=== PATIENT | female | born 1935 | race Caucasian/White ===

== ENCOUNTER → 2023-11-24 10:04 | Outpatient (REF) | payer MEDICARE, BC, SELFPAY ==
[2023-11-24 11:44] LABS: Urine Albumin Negative (Neg - Trace); Urine Bilirubin Negative (Negative); Urine Character Clear (Clear); Urine Color Yellow; Urine Glucose Negative (Negative); Urine Ketone Negative (Negative); Urine Leukocyte 2+ (Negative); Urine Nitrite Negative (Negative); Urine Occult Blood Negative (Negative); Urine Urobilinogen Negative (Neg - 1+)
[2023-11-24 14:03] LABS: Urine Mucus Few; Urine Squamous Cell >30 /LPF (Few)
[2023-11-24 14:04] LABS: Urine Urothelial Cell 0-2 /LPF (FEW)
[2023-11-24 14:05] LABS: Urine Red Blood Cell 0-2 /HPF (0-2)
[2023-11-24 14:06] LABS: Urine Bacteria Moderate (Negative)
== END ==
LOC: HWLAB 10:04
PROVIDERS: ATTENDING PHYSICIAN Obstetrics & Gynecology
DX: N39.0 Urinary tract infection, site not specified (principal)
CPT/HCPCS: 81003; 81015; 87086; 87088; 87186

== ENCOUNTER → 2023-11-27 11:58 | Emergency (ER) | payer MEDICARE, BC, SELFPAY ==
[2023-11-27 12:08] VITALS: BP 154/96; BMI 32.8
[2023-11-27 12:35] LABS: Urine Albumin 1+ (Neg - Trace); Urine Bilirubin 1+ (Negative); Urine Character Clear (Clear); Urine Color Yellow; Urine Glucose Negative (Negative); Urine Ketone 3+ (Negative); Urine Leukocyte 2+ (Negative); Urine Nitrite Negative (Negative); Urine Occult Blood 1+ (Negative); Urine Urobilinogen Negative (Neg - 1+); Urine pH 6.5 (5.0-9.0)
[2023-11-27 12:37] LABS: % Basophils 0.3 % (0-2); % Immature Granulocytes 0.3 % (0-0.5); % Lymphocytes 4.8 % (20.5-51.1); % Monocytes 7.1 % (1.7-9.3); % Neutrophils 85.5 % (42.2-75.2); Absolute Eosinophils 0.2 10^3/uL (0-0.7); Absolute Lymphocytes 0.5 10^3/uL (1.2-3.4); Absolute Monocytes 0.7 10^3/uL (0.1-0.6); Absolute Neutrophils 8.1 10^3/uL (1.4-6.5); Hematocrit 42.8 % (37.0-47.0); Hemoglobin 14.8 g/dL (12.0-16.0); Mean Corp Hgb Conc. 34.6 g/dL (33.0-37.0); Mean Corpuscular Hgb 32.2 pg (27.0-31.0); Mean Platelet Volume 9.2 fL (7.4-10.4); Nucleated Red Blood Cells % 0 %; Platelet Count 461 10^3/uL (130-400); Red Cell Dist. Width 13.1 % (11.5-14.5); White Blood Cell Count 9.5 10^3/uL (4.8-10.8)
[2023-11-27 12:42] LABS: Urine Squamous Cell >30 /LPF (Few)
[2023-11-27 12:43] LABS: Urine Bacteria Few (Negative)
[2023-11-27 12:46] LABS: Lactic Acid 1.2 mmol/L (0.7-2.0)
[2023-11-27 12:48] LABS: ALT (SGPT) 17 U/L (0-35); AST (SGOT) 29 U/L (14-36); Albumin 4.1 g/dl (3.5-5.0); Alkaline Phosphatase 87 U/L (38-126); Blood Urea Nitrogen 14 mg/dl (7-17); Calcium 9.5 mg/dl (8.4-10.2); Carbon Dioxide 28 mmol/L (22-30); Chloride 103 mmol/L (98-107); Estimated Creatinine Clearance 59 ml/min; Glucose 128 mg/dl (70-99); Potassium 4.2 mmol/L (3.5-5.1); Sodium 136 mmol/L (135-145); Total Bilirubin 0.8 mg/dl (0.2-1.3); Total Protein 6.7 g/dl (6.3-8.2); eGFR > 60.00
[2023-11-27 14:03] VITALS: BP 124/79
--- NOTE | 2023-11-27 15:21 | ED.GENMED ---
History of Present Illness
<Lynette Barroso PA-C - Last Filed: 11/27/23 20:36>
General
Chief Complaint: Urinary Symptoms
Source: patient and family
Exam Limitations: none
Time Seen by Provider: 11/27/23 14:11
Nursing documentation reviewed up to this point in time: agreed with
Travel History
Have you had any contact with someone who has COVID-19?: No
Do you have any symptoms of coronavirus? Fever > 100 degrees, chills, cough, shortness of breath, sore throat, loss of taste or smell, muscle aches, or headache?: No
History of Present Illness
History of Present Illness:
88-year-old female with a PMH of HTN, afib, presenting to the emergency department today with flank pain, abdominal pain, and nausea for the past 24 hours. Patient states that she was seen by her PCP 2 days ago for UTI symptoms and was called
yesterday with positive result and was started on Macrobid. Patient states that she was recently started to have abdominal pain and flank pain. Patient has no history of kidney stones. Patient denies fevers or chills, upper back pain, chest pain,
shortness of breath, lightheadedness, dizziness. Patient denies diarrhea. Patient denies recent hospitalizations.
Past History
<Lynette Barroso PA-C - Last Filed: 11/27/23 20:36>
Past History
ED Past Medical History: Arrthythmia (Atrial fibrillation-only on aspirin), GERD, HTN, Hypothyroidism and Other (Hypertension, A. fib on anticoagulation, cholecystectomy, umbilical hernia repair, GERD)
ED Past Surgical History: Cholecystectomy, Orthopedic (Lateral shoulder, right knee) and Other (Hernia repair)
Patient has exhibited threatening behavior?: No
PSI?: No
Social History
Tobacco: Non-smoker
Alcohol: None
Drug: None
Personal:
Living: with family
Employment: Retired
Family History
Family History: Other (Noncontributory)
Review of Systems
<Lynette Barroso PA-C - Last Filed: 11/27/23 20:36>
Review of Systems
All Other Systems: ROS reviewed and negative except as documented in HPI and ROS
Phy Exam
<Lynette Barroso PA-C - Last Filed: 11/27/23 20:36>
Physical Exam
Physical Exam:
Vitals: Patient is afebrile
General: Patient is well-appearing in no acute distress
Skin: Skin is warm and dry, no rashes or lesions, no areas of ecchymosis
Cardiac: Regular rate and rhythm, no murmur
Pulm: Normal respiratory effort
Abdomen: Abdomen is non-distended, no palpable masses. Tenderness to palpation in the right lower and left lower quadrants. Right sided costovertebral tenderness.
Course
<Lynette Barroso PA-C - Last Filed: 11/27/23 20:36>
Orders/Labs/Results
Orders:
Orders
11/27/23 12:20
Urinalysis Reflex To Culture Urgent
Date Specimen was Collected: 11/27/23
Time Specimen was Collected: 12:12
Urine Microscopic Reflex Cult Urgent
Urine Culture Urgent
SHAMA Source: U
Specimen Description:
Date Specimen was Collected: 11/27/23
Time Specimen was Collected: 12:12
11/27/23 12:25
Complete Blood Count/With Diff Urgent
Comprehensive Metabolic Panel Urgent
Lactic Acid Q4H
Comment: ON ICE, CANCEL 2ND ORDER IF FIRST LACTIC ACID LEVEL <2
11/27/23 15:30
0.9% Sodium Chloride 500 ml [Nss] 500 ml IV BOLUS
Acetaminophen [Tylenol] 650 mg PO NOW STA
Ondansetron Injectable [Zofran] 4 mg IV NOW STA
11/27/23 15:49
CT Abd/pel Without Iv Or Oral Urgent
Comment:
Reason For Exam: Right sided flank pain, abdominal pain
11/27/23 16:15
Lactic Acid Q4H
Comment: ON ICE, CANCEL 2ND ORDER IF FIRST LACTIC ACID LEVEL <2
Abnormal Lab Results
11/27/23 11/27/23
12:20 12:25
MCH 32.2 H pg
(27.0-31.0)
Plt Count 461 H 10^3/uL
(130-400)
Absolute Neuts (auto) 8.1 H 10^3/uL
(1.4-6.5)
Absolute Lymphs (auto) 0.5 L 10^3/uL
(1.2-3.4)
Absolute Monos (auto) 0.7 H 10^3/uL
(0.1-0.6)
Neutrophils % 85.5 H %
(42.2-75.2)
Lymphocytes % 4.8 L %
(20.5-51.1)
Glucose 128 H mg/dl
(70-99)
Urine Ketones 3+ A
(Negative)
Ur Occult Blood Reflex 1+ A
(Negative)
Urine Bilirubin 1+ A
(Negative)
Leukocyte Esterase Rfl 2+ A
(Negative)
Urine RBC 3-6 A /HPF
(0-2)
Urine Bacteria (Reflex) Few A
(Negative)
Urine Albumin (Reflex) 1+ A
(Neg - Trace)
11/27/23 12:25
11/27/23 12:25
Vital Signs
Initial and Last Documented VS:
Initial Vital Signs
Temp Pulse Resp BP Pulse Ox
99.4 F 90 16 154/96 99
11/27/23 12:08 11/27/23 12:08 11/27/23 12:08 11/27/23 12:08 11/27/23 12:08
Last Documented Vital Signs
Temp Pulse Resp BP Pulse Ox
98.4 F 81 17 124/79 96
11/27/23 14:03 11/27/23 14:03 11/27/23 14:03 11/27/23 14:03 11/27/23 14:03
<Herbert Lane MD - Last Filed: 11/27/23 19:18>
Orders/Labs/Results
Orders:
Orders
11/27/23 12:20
Urinalysis Reflex To Culture Urgent
Date Specimen was Collected: 11/27/23
Time Specimen was Collected: 12:12
Urine Microscopic Reflex Cult Urgent
Urine Culture Urgent
SHAMA Source: U
Specimen Description:
Date Specimen was Collected: 11/27/23
Time Specimen was Collected: 12:12
11/27/23 12:25
Complete Blood Count/With Diff Urgent
Comprehensive Metabolic Panel Urgent
Lactic Acid Q4H
Comment: ON ICE, CANCEL 2ND ORDER IF FIRST LACTIC ACID LEVEL <2
11/27/23 15:30
0.9% Sodium Chloride 500 ml [Nss] 500 ml IV BOLUS
Acetaminophen [Tylenol] 650 mg PO NOW STA
Ondansetron Injectable [Zofran] 4 mg IV NOW STA
11/27/23 15:49
CT Abd/pel Without Iv Or Oral Urgent
Comment:
Reason For Exam: Right sided flank pain, abdominal pain
11/27/23 16:15
Lactic Acid Q4H
Comment: ON ICE, CANCEL 2ND ORDER IF FIRST LACTIC ACID LEVEL <2
Abnormal Lab Results
11/27/23 11/27/23
12:20 12:25
MCH 32.2 H pg
(27.0-31.0)
Plt Count 461 H 10^3/uL
(130-400)
Absolute Neuts (auto) 8.1 H 10^3/uL
(1.4-6.5)
Absolute Lymphs (auto) 0.5 L 10^3/uL
(1.2-3.4)
Absolute Monos (auto) 0.7 H 10^3/uL
(0.1-0.6)
Neutrophils % 85.5 H %
(42.2-75.2)
Lymphocytes % 4.8 L %
(20.5-51.1)
Glucose 128 H mg/dl
(70-99)
Urine Ketones 3+ A
(Negative)
Ur Occult Blood Reflex 1+ A
(Negative)
Urine Bilirubin 1+ A
(Negative)
Leukocyte Esterase Rfl 2+ A
(Negative)
Urine RBC 3-6 A /HPF
(0-2)
Urine Bacteria (Reflex) Few A
(Negative)
Urine Albumin (Reflex) 1+ A
(Neg - Trace)
11/27/23 12:25
11/27/23 12:25
Vital Signs
Initial and Last Documented VS:
Initial Vital Signs
Temp Pulse Resp BP Pulse Ox
99.4 F 90 16 154/96 99
11/27/23 12:08 11/27/23 12:08 11/27/23 12:08 11/27/23 12:08 11/27/23 12:08
Last Documented Vital Signs
Temp Pulse Resp BP Pulse Ox
98.4 F 81 17 124/79 96
11/27/23 14:03 11/27/23 14:03 11/27/23 14:03 11/27/23 14:03 11/27/23 14:03
Leolt;Lynette Barroso PA-C - Last Filed: 11/27/23 20:36>
MDM/Problems Addressed
Differential Diagnosis Includes:
Differentials include acute cystitis, pyelonephritis, infected nephrolithiasis
MDM/Problems Addressed:
Abdominal pain
Nausea
UTI
Chronic conditions affecting care: HTN and Arrhythmia
Acute Exacerbation and/or Progression of Chronic Illness: HTN
<MARISABEL Robledo Last Filed: 11/27/23 20:36>
*Pulse Oximetry
Patient hypoxic: no
*Critical Care Note
Total Time (30-74mins, 75-104mins- exclusive of procedures): Not Applicable
Data Reviewed
Review of Other/Old Records Reveals: Discharge Summary (Reviewed discharge summary from 08/31/2022)
Prescriptions/Medications Considered But Not Given:
Considered admission for IV antibiotics therapy, however patient is very well-appearing, is afebrile, and wishes to go home; her daughter lives close by and is able to help with care
Further Testing Considered But Not Given:
n/a
<MARISABEL Robledo Last Filed: 11/27/23 20:36>
Patient Management
Escalation/DeEscalation of care consider admission/obs:
88-year-old female medical history of hypothyroidism, UTI sepsis, A-fib presenting to emergency department today with lower abdominal pain, flank pain, nausea in the setting of UTI. Patient being treated as an outpatient currently with Macrobid.
Family doctor was concerned about her history of UTI sepsis and advised being evaluated here at the emergency department. Her CBC is unremarkable, and her CMP is unremarkable. Her urinalysis here does show evidence of UTI however there is many
squamous cells. Considering patient had microscopic hematuria, new flank pain abdominal pain, CT was obtained which shows no evidence of kidney stone or other renal abnormalities. Patient was advised on return precautions and we recommended she
stop her Macrobid and start cefdinir. Patient stable for discharge.
ED Attending Note
<MARISABEL Robledo Last Filed: 11/27/23 20:36>
-
Portions of this chart may have been created with voice recognition software.� Occasional wrong word or��sound alike� substitutions may have occurred due to the inherent limitations of voice recognition software.
<Herbert Lane MD - Last Filed: 11/27/23 19:18>
ED Attending Note
Patient seen and examined by attending physician: Yes
ED Attending Note:
Patient presents to ED secondary to nausea sensation without vomiting, after starting Macrobid yesterday for possible urinary tract infection. Patient states that she started to experience lower abdominal cramping feeling 3 days ago, which she has
had in the past secondary to UTI. As such, patient spoke with her primary care physician who advised that she has her urine test as an outpatient, which was completed at [facility]. Patient received phone call at home from her primary care
physician and was started on Macrobid. Denies fever or chills. Denies abdominal pain. Denies back pain. Denies diarrhea.
Physical Exam
General: no apparent distress, not acutely ill. afebrile
Head: nc/at. eomi
Neck: supple. no meningeal signs.
Heart: s1/s2 regular rate and rhythm, no murmur. equal radial pulses.
Lungs: no acute respiratory distress. clear bilaterally
Abdomen: normal bowel sounds. not tender.
Neuro: alert and oriented. no focal neurological deficits
Skin: no rash
Psychiatric: well kept. interactive and cooperative
Extremities: no edema. no calf tenderness.
Blood work and urinalysis reviewed. In light of patient's lower abdominal/flank discomfort along with hematuria noted on UA, CT abdomen pelvis ordered to evaluate for potential kidney stone.
CT abdomen pelvis: No acute findings.
Discussed treatment options with patient and family. Family opted to be discharged home at this time with different antibiotics. Will follow-up with PCP as an outpatient, or return to ED with worsening symptoms. Otherwise, patient is afebrile,
hemodynamically stable, and nontoxic-appearing, at time of discharge.
Discharge Plan
Departure
Patient Disposition: Home (Routine Discharge)
Date of Disposition: 11/27/23
Time of Disposition: 17:49
Patient with high blood pressure during this ER visit?: Yes
Condition: Good
Discharge Problem:
Urinary tract infection
Instructions: Urinary Tract Infection, Adult (DC), BLOOD PRESSURE
Prescriptions:
New
cefdinir 300 mg capsule
300 mg PO BID 7 Days Qty: 14 0RF
No Action
levothyroxine 75 MCG tablet
75 mcg PO DAILY
esomeprazole magnesium [Nexium] 40 MG capsule,delayed release(DR/EC)
40 mg PO HS
aspirin 81 MG tablet,delayed release (DR/EC)
81 mg PO HS
lisinopril 10 MG tablet
10 mg PO QPM
sertraline 25 MG tablet
25 mg PO QPM
cholecalciferol (vitamin D3) 1,000 UNITS tablet
1,000 units PO QPM
metoprolol succinate 25 MG tablet extended release 24 hr
25 mg PO DAILY
acetaminophen 650 mg Tablet Extended Release
650 mg PO Q12H PRN (Reason: mild pain)
prednisone 10 mg tablet
10 mg PO DAILY Qty: 16 0RF
Rx Instructions:
40mg * 1 day
30mg * 2 days
20mg* 2 days
10MG*2 days and stop
azithromycin [Zithromax] 500 mg tablet
500 mg PO DAILY 2 Days Qty: 2 0RF
Chld Robitussin Cough-Chest DM 5-100 mg/5 mL liquid
10 ml PO Q6H PRN (Reason: cough) Qty: 118 0RF
albuterol sulfate 90 mcg/actuation HFA aerosol inhaler
2 puff inhalation Q6H PRN (Reason: shortness of breath or wheezing) Qty: 6.7 0RF
guaifenesin [Mucinex] 600 mg Tablet Extended Release 12hr
600 mg PO Q12 Qty: 14 0RF
Referrals:
D'Daniel,Conchita, TRANSPORTATION COORDINATOR [Family Provider] -
Activity Restrictions/Additional Instructions:
Your CT scan did not show any evidence of an infected stone.
Please stop taking the nitrofurantoin. Please start taking cefdinir one tablet twice daily for 7 days.
Please return to the emergency department should you develop fevers or chills, worsening pain, intractable vomiting, decreased ability to tolerate oral intake, or other concerning signs or symptoms.
Please follow-up with your primary care provider.
Interventions
Interventions:
*ED COVID-19 Vaccine History Last Done: 11/27/23 12:08
[2023-11-27] MEDS: TYLENOL 650 MG PO (15:53)
[2023-11-27] MEDS: ZOFRAN 4 MG IV (15:55)
[2023-11-27] MEDS: NSS 500 IV (15:57)
== END | disposition home or self-care (01) ==
LOC: EMR 11:58
PROVIDERS: Emergency Medicine; EMERGENCY PHYSICIAN Emergency Medicine; FAMILY PHYSICIAN Nurse Practitioner Adult Health
DX: N39.0 Urinary tract infection, site not specified (principal); I48.91 Unspecified atrial fibrillation; K21.9 Gastro-esophageal reflux disease without esophagitis; I10 Essential (primary) hypertension; E03.9 Hypothyroidism, unspecified; Z79.01 Long term (current) use of anticoagulants; Z90.49 Acquired absence of other specified parts of digestive tract
CPT/HCPCS: 99284; 96374; 96361; 74176; 80053; 81003; 81015; 83605; 85025; 87077; 87086; 87088; 87147

== ENCOUNTER → 2024-05-10 15:55 | Outpatient (REF) | payer MEDICARE, BC, SELFPAY | LOC: HWRAD 15:55 | PROVIDERS: ATTENDING PHYSICIAN Nurse Practitioner Adult Health | DX: M79.641 Pain in right hand (principal); M53.3 Sacrococcygeal disorders, not elsewhere classified | CPT/HCPCS: 72220; 73120 ==

== ENCOUNTER → 2024-05-31 09:27 | Outpatient (REF) | payer MEDICARE, BC, SELFPAY ==
[2024-05-31 12:28] LABS: % Basophils 0.7 % (0-2); % Immature Granulocytes 0.2 % (0-0.5); % Lymphocytes 41.3 % (20.5-51.1); % Monocytes 9.1 % (1.7-9.3); % Neutrophils 44.7 % (42.2-75.2); Absolute Eosinophils 0.2 10^3/uL (0-0.7); Absolute Lymphocytes 2.4 10^3/uL (1.2-3.4); Absolute Monocytes 0.5 10^3/uL (0.1-0.6); Absolute Neutrophils 2.5 10^3/uL (1.4-6.5); Hematocrit 39.3 % (37.0-47.0); Hemoglobin 13.3 g/dL (12.0-16.0); Mean Corp Hgb Conc. 33.8 g/dL (33.0-37.0); Mean Corpuscular Hgb 31.6 pg (27.0-31.0); Mean Corpuscular Volume 93.3 fL (81.0-99.0); Mean Platelet Volume 9.4 fL (7.4-10.4); Nucleated Red Blood Cells % 0 %; Platelet Count 444 10^3/uL (130-400); Red Blood Cell Count 4.21 10^6/uL (4.20-5.40); Red Cell Dist. Width 13.9 % (11.5-14.5); White Blood Cell Count 5.7 10^3/uL (4.8-10.8)
[2024-05-31 12:44] LABS: ALT (SGPT) 14 U/L (0-35); AST (SGOT) 29 U/L (14-36); Albumin 3.9 g/dl (3.5-5.0); Alkaline Phosphatase 67 U/L (38-126); Blood Urea Nitrogen 15 mg/dl (7-17); Calcium 9.9 mg/dl (8.4-10.2); Carbon Dioxide 29 mmol/L (22-30); Chloride 104 mmol/L (98-107); Glucose 84 mg/dl (70-99); HDL Cholesterol 69 mg/dl; LDL Cholesterol, Calculated 73 mg/dl; Potassium 4.3 mmol/L (3.5-5.1); Sodium 139 mmol/L (135-145); Total Bilirubin 0.7 mg/dl (0.2-1.3); Total Cholesterol 165 mg/dl (50-199); Total Protein 6.2 g/dl (6.3-8.2); Triglyceride 117 mg/dl (10-149); Very Low Density Lipoprotein 23 mg/dl (0-30); eGFR > 60.00
[2024-05-31 12:57] LABS: Vitamin D, 25-OH*** 46.2 ng/mL (30-80)
[2024-05-31 13:14] LABS: TSH Reflex To Free T4 0.94 uIU/ml (0.47-4.68)
== END ==
LOC: HWLAB 09:27
PROVIDERS: ATTENDING PHYSICIAN Nurse Practitioner Adult Health
DX: I10 Essential (primary) hypertension (principal); Z79.899 Other long term (current) drug therapy; E55.9 Vitamin D deficiency, unspecified; E03.9 Hypothyroidism, unspecified
CPT/HCPCS: 36415; 80053; 80061; 82306; 84443; 85025

== ENCOUNTER → 2024-06-16 15:51 | Outpatient (REF) | payer MEDICARE, BC, SELFPAY ==
[2024-06-16 18:45] LABS: Urine Albumin Negative (Neg - Trace); Urine Bilirubin Negative (Negative); Urine Character Very Cloudy (Clear); Urine Color Yellow; Urine Glucose Negative (Negative); Urine Ketone Negative (Negative); Urine Leukocyte Negative (Negative); Urine Nitrite Negative (Negative); Urine Occult Blood Negative (Negative); Urine Specific Gravity 1.015 (<1.030); Urine Urobilinogen Negative (Neg - 1+)
== END ==
LOC: CLAB 15:51
PROVIDERS: ATTENDING PHYSICIAN Physician Assistant
DX: N39.0 Urinary tract infection, site not specified (principal)
CPT/HCPCS: 81003; 87086

== ENCOUNTER 2024-08-18 14:02 | Observation (INO) | payer MEDICARE, BC, SELFPAY ==
[2024-08-18] VITALS (25 sets, daily range): BP systolic 124–181; BP diastolic 59–105; PULSE 73–145; O2SAT 96
[2024-08-18] MEDS: DILAUDID 0.5 MG IV ×4 (01:26→15:15)
[2024-08-18 01:29] LABS: % Basophils 0.4 % (0-2); % Eosinophils 5.6 % (0-6); % Immature Granulocytes 0.4 % (0-0.5); % Monocytes 7.9 % (1.7-9.3); % Neutrophils 48.7 % (42.2-75.2); Absolute Eosinophils 0.3 10^3/uL (0-0.7); Absolute Lymphocytes 2.1 10^3/uL (1.2-3.4); Absolute Monocytes 0.5 10^3/uL (0.1-0.6); Absolute Neutrophils 2.8 10^3/uL (1.4-6.5); Hematocrit 41.5 % (37.0-47.0); Hemoglobin 14.5 g/dL (12.0-16.0); Mean Corp Hgb Conc. 34.9 g/dL (33.0-37.0); Mean Corpuscular Hgb 31.1 pg (27.0-31.0); Mean Corpuscular Volume 89.1 fL (81.0-99.0); Mean Platelet Volume 9.5 fL (7.4-10.4); Nucleated Red Blood Cells % 0 %; Platelet Count 395 10^3/uL (130-400); Red Blood Cell Count 4.66 10^6/uL (4.20-5.40); Red Cell Dist. Width 13.3 % (11.5-14.5); White Blood Cell Count 5.7 10^3/uL (4.8-10.8)
[2024-08-18 01:45] LABS: ALT (SGPT) 20 U/L (0-35); AST (SGOT) 33 U/L (14-36); Albumin 4.4 g/dl (3.5-5.0); Alkaline Phosphatase 61 U/L (38-126); Blood Urea Nitrogen 12 mg/dl (7-17); Calcium 9.5 mg/dl (8.4-10.2); Carbon Dioxide 26 mmol/L (22-30); Chloride 105 mmol/L (98-107); Estimated Creatinine Clearance 61 ml/min; Glucose 105 mg/dl (70-99); Potassium 4.4 mmol/L (3.5-5.1); Sodium 146 mmol/L (135-145); Total Bilirubin 0.2 mg/dl (0.2-1.3); Total Protein 7.1 g/dl (6.3-8.2); eGFR > 60.00
--- NOTE | 2024-08-18 03:54 | ED.GENMED ---
Addendum entered and electronically signed by Kenneth Lyons MD 08/18/24 13:18:
Unable to place. Patient has a humerus fracture and needs a walker to walk. Therefore unable to walk and cannot handle her medical conditions at home. We attempted to try to place with director of social media marketing. Will be admitted medically
Original Note:
History of Present Illness
General
Chief Complaint: Fall
Source: patient
Exam Limitations: none
Time Seen by Provider: 08/18/24 01:22
Nursing documentation reviewed up to this point in time: agreed with
History of Present Illness
History of Present Illness:
89-year-old female with history as documented presents to the emergency room for evaluation after a fall. Patient reports that she was getting out of a chair tonight and lost her balance and fell onto her left side. She injured her left shoulder.
She is unsure whether she hit her head. She says she did not pass out. EMS called to bring her to the hospital. She complains mainly of pain in the left shoulder. She says that pain does shoot down the arm and into the wrist. Denies any
numbness or weakness. She denies any headache or neck pain. Denies any back pain. Denies any chest or abdominal pain. Denies any pain in the legs. She does have history of A-fib but is no longer on anticoagulation due to history of falls. She
currently lives with her dog in a basement unit of her daughter's house; she ambulates with a walker but admits she was not using this tonight.
Past History
Past History
ED Past Medical History: Arrthythmia (Atrial fibrillation-only on aspirin), GERD, HTN, Hypothyroidism and Other (Hypertension, A. fib on anticoagulation, cholecystectomy, umbilical hernia repair, GERD)
ED Past Surgical History: Cholecystectomy, Orthopedic (Lateral shoulder, right knee) and Other (Hernia repair)
Patient has exhibited threatening behavior?: No
PSI?: No
Social History
Tobacco: Non-smoker
Alcohol: None
Drug: None
Personal:
Living: with family
Employment: Retired
Family History
Family History: Other (Noncontributory)
Review of Systems
Review of Systems
All Other Systems: ROS reviewed and negative except as documented in HPI and ROS
Respiratory: Denies trouble breathing
Cardiac: Denies chest pain
ABD/GI: Denies abdominal pain, nausea or vomiting
: Denies flank pain
Musculoskeletal: Reports joint pain (Shoulder pain); Denies neck pain or back pain
Neurological: Denies dizzy, headache, weakness or numbness
Phy Exam
Physical Exam
Physical Exam:
General: Awake, alert, oriented x3 and very pleasant; no acute distress
Head: Normocephalic, atraumatic
Eyes: Conjunctiva normal, pupils equal round and reactive to light bilaterally
Throat: Airway intact, handling secretions
Neck: Trachea midline, no cervical spine tenderness
Back: No signs of trauma the back or flank and no reproducible tenderness in the thoracic or lumbar spine
Lungs: Clear to auscultation bilaterally, no wheezing, rales, rhonchi
Heart: Regular rate and irregular rhythm, no murmurs, gallops, or rubs appreciated; no chest wall/rib tenderness
Abd: Soft, non distended, nontender
Neuro: Cranial nerves grossly intact, speech fluid; motor and sensory function intact distal left upper extremity radial, median, ulnar nerve distribution
Skin: no rash
Extremities: Patient has tenderness of the left shoulder anteriorly along the humeral head; no tenderness of the left upper arm, forearm, wrist or elbow; any attempt at range of motion of left shoulder causes severe pain; she does allow me to move
left wrist and elbow through reasonable range of motion without apparent pain; she has a strong left radial pulse; rest of extremities are atraumatic, nontender and she allows for passive range of motion all joints of the right upper extremity and
her bilateral lower extremities without pain
Scores
Heart Failure Risk
Heart Failure Risk Score: Not Applicable
Heart Score for Chest Pain Patients
STEMI patient?: Not applicable
Withdrawal Assessment of Alcohol
Withdrawal Assessment Completed?: Not applicable
Course
Orders/Labs/Results
Orders:
Orders
08/18/24 01:17
ECG [Electrocardiogram (*1)] Urgent
Reason for Study: Other
Other Reason for Exam: possible surgery
Cardiology Consult: Tripp Cobb
08/18/24 01:19
EKG- Treatment ONCE
08/18/24 01:20
Complete Blood Count/With Diff Urgent
Comprehensive Metabolic Panel Urgent
08/18/24 01:22
Shoulder, Left, Trauma CR [CR Shoulder, Trauma - Left] Urgent
Comment:
Reason For Exam: fall, ecchymosis
08/18/24 01:23
Wrist, Left 3 Views CR [CR Wrist - Left Min 3 Views] Urgent
Comment:
Reason For Exam: fall
08/18/24 01:24
Elbow, 3 view, Left [CR Elbow - Left Min 3 Views ] Urgent
Comment:
Reason For Exam: fall
08/18/24 01:25
HYDROmorphone [Dilaudid] 0.5 mg .ROUTE .STK-MED ONE
08/18/24 01:26
HYDROmorphone [Dilaudid] 0.5 mg IV NOW STA
08/18/24 02:36
CT Cervical Spine W/o Iv Contr Urgent
Comment:
Reason For Exam: fall with headstrike
CT Head W/o Iv Contrast Urgent
Comment:
Reason For Exam: fall with headstrike
08/18/24 03:42
Sling Left-Treatment ONCE
08/18/24 03:45
HYDROmorphone [Dilaudid] 0.5 mg .ROUTE .STK-MED ONE
08/18/24 03:46
HYDROmorphone [Dilaudid] 0.5 mg IV NOW STA
08/18/24 03:53
Case Management Consult ONCE
Case Management Consult: Long Term Placement
Pt Eval And Treat Urgent
Activity Level: Ambulate
Abnormal Lab Results
08/18/24
01:20
MCH 31.1 H pg
(27.0-31.0)
Sodium 146 H mmol/L
(135-145)
Glucose 105 H mg/dl
(70-99)
08/18/24 01:20
08/18/24 01:20
Vital Signs
Initial and Last Documented VS:
Initial Vital Signs
Temp Pulse Resp BP Pulse Ox
36.4 C 56 20 160/96 98
08/18/24 00:20 08/18/24 00:20 08/18/24 00:20 08/18/24 00:20 08/18/24 00:20
Last Documented Vital Signs
Temp Pulse Resp BP Pulse Ox
36.4 C 61 20 138/69 97
08/18/24 00:20 08/18/24 03:33 08/18/24 03:33 08/18/24 03:33 08/18/24 03:33
MDM/Problems Addressed
Differential Diagnosis Includes:
Left shoulder injury: Fracture, dislocation, contusion
MDM/Problems Addressed:
89-year-old female presents after mechanical fall with left shoulder trauma; unsure whether there was a head strike. No loss of consciousness. Complains of left shoulder pain but no other complaints. Not on blood thinners. Vitals and exam as
above. She had labs sent in triage including a CBC and a CMP which were unremarkable. She was ordered for a x-ray of the left shoulder as well as wrist and elbow (was complaining of pain occasionally shooting down the arm). X-rays reviewed by
jazmin does have left humeral head fracture but x-ray of the elbow and wrist show no fractures. Added CT of the head and cervical spine which are pending.
CT head and cervical spine show no acute pathology. Patient still having significant pain from left humeral head fracture. Furthermore she lives essentially independently and is supposed to ambulate with a walker; she cannot sit up in bed without
significant pain very high risk for fall at this point and will need short-term rehab. Will place in a sling. She will need orthopedic referral. Will monitor here tonight pending PT evaluation and case management consultation tomorrow for
placement in rehab. Patient is comfortable with this plan.
*Radiology
Radiology exam reviewed: preliminary read by ED provider and radiology read reviewed
*Pulse Oximetry
Patient hypoxic: no
*EKG
Interpreted by ED Provider?: Yes
Heart Rate: 64
Rate: normal
Rhythm: a-fib
[place]: normal axis
Interval: normal interval
QRS Pattern: low voltage
Ischemia: no ischemia
*Critical Care Note
Total Time (30-74mins, 75-104mins- exclusive of procedures): Not Applicable
Data Reviewed
Source: patient and ambulance crew
ED Attending Note
-
Portions of this chart may have been created with voice recognition software.� Occasional wrong word or��sound alike� substitutions may have occurred due to the inherent limitations of voice recognition software.
Discharge Plan
Departure
Discharge Problem:
Left humeral fracture
Prescriptions:
No Action
levothyroxine 75 MCG tablet
75 mcg PO DAILY
esomeprazole magnesium [Nexium] 40 MG capsule,delayed release(DR/EC)
40 mg PO HS
aspirin 81 MG tablet,delayed release (DR/EC)
81 mg PO HS
lisinopril 10 MG tablet
10 mg PO QPM
sertraline 25 MG tablet
50 mg PO QPM
cholecalciferol (vitamin D3) 1,000 UNITS tablet
1,000 units PO QPM
metoprolol succinate 25 MG tablet extended release 24 hr
25 mg PO DAILY
acetaminophen 650 mg Tablet Extended Release
650 mg PO Q12H PRN (Reason: mild pain)
albuterol sulfate 90 mcg/actuation HFA aerosol inhaler
2 puff inhalation Q6H PRN (Reason: shortness of breath or wheezing) Qty: 6.7 0RF
gabapentin
100 mg PO HS
Referrals:
Margarita Guadalupe CRNP [Family Provider] -
Interventions
Interventions:
*Risk Screen - Suicide Last Done: 08/18/24 00:20
*General Assessment Last Done: 08/18/24 00:20
*Neglect/Abuse Screening Last Done: 08/18/24 00:20
ED- Fall Risk Assessment Last Done: 08/18/24 00:20
*ED COVID-19 Vaccine History Last Done: 08/18/24 00:20
ED-Musculoskeletal Assessment Last Done: 08/18/24 01:59
ED- Neurological Assessment Last Done: 08/18/24 01:57
ED-Skin Assessment Last Done: 08/18/24 01:30
Discharge Date and Time
Print Language: KENYAN
--- NOTE | 2024-08-18 07:30 | EDRN ---
the pt was received from previous overnight stocker RN, the pt is resting in stretcher in the lowest position, side rails up x2, call cobian within reach, HOB elevated, no s/s of distress, no c/o pain to left shoulder currently per the pt, the pt denies
needing anything at this time, pt in Afib in the 60's on the monitor, last BP 124/83 (97), the pts daughter an son in law are currently at the pts bedside, the pt was repositioned in stretcher for comfort per the pts request, will continue to
monitor the pt closely
--- NOTE | 2024-08-18 08:24 | EDRN ---
physical therapy currently at the pts bedside
--- NOTE | 2024-08-18 08:43 | EDRN ---
while physical therapy was with the pt the pt became tachycardic in the 140' and threw up x1, provider notified, the pt is now currently in NSR in the 70's, hypertensive at 181/90 (108), the pt states that she feels comfortable in stretcher, will
continue to monitor the pt closely
--- NOTE | 2024-08-18 10:46 | EDRN ---
the pt is resting in stretcher in the lowest position, side rails up x2, call cobian within reach, HOB elevated, no s/s of distress, VS WNL, the pt denies needing anything at this time, awaiting for provider to update this RN on POC, will continue to
monitor the pt closely
--- NOTE | 2024-08-18 11:35 | EDRN ---
this RN spoke to Dr. Lyons and notified him that the pts family wanted an update on the pts POC, Dr. Lyons will be coming to the pts bedside
--- NOTE | 2024-08-18 12:11 | EDRN ---
case management currently at the pts bedside
--- NOTE | 2024-08-18 12:30 | CM ---
Addendum entered by Alexandre Snow 08/18/24 15:37:
OBS status explained to the pt and her daughter, BARRIENTOS letter signed, placed on chart, pt has a copy.
Addendum entered by Alexandre Snow 08/18/24 14:56:
CM received a phone call from [facility] associate embalmer/funeral director and she stated they do have a bed available tomorrow and they can accept the pt if pt preferred their SNF. CM discussed it with pt and her daughter and their expressed their great
appreciation with discharge plan outcome and they preferred [facility].
[facility] associate embalmer/funeral director [facility]/C plan: [facility] tomorrow 08/19/24.
CM will follow to assist pt with discharge to [facility].
Addendum entered by Alexandre Snow 08/18/24 14:16:
CM received a phone call from [facility] international marketing manager Stefanie and she stated that [facility] denied to approve the pt for SNF level of care because pt's primary is Medicare.
Both pt and her daughter Amaris are aware, expressed their disappointment. CM explained to the pt and her daughter again the eligibility for SNF level of care under medicare guidelines and they expressed their understanding.
CM spoke to [facility] bilingual patient support caseworker to check whether or not pt is a member of [employer] and she confirmed it. At this point required Medicare eligibility can be waived under certain criteria. A list of [employer]CO participated SNFs provided to the pt and her
daughter. [facility] and/or [facility] preferred. A referral to above SNFs made.
CM spoke to [facility] associate embalmer/funeral director and she confirmed they will not have a bed available till next week. Awaiting for determination from [facility].
Per MD pt will be admitted for OBS level of care.
D/C plan: [facility] most likely tomorrow. [facility] liaison is aware of [employer] membership and pt's possible discharge tomorrow.
CM will follow to assist pt with discharge to [facility].
Original Note:
CM following re: discharge planning.
CM consulted to asset pt with [facility] placement.
Reviewed pt's chart, met with pt and spoke to pt's daughter Amaris over the phone.
Pt is an 89 year old female, arrived to ED after she fell at home with resultant L humeral fracture. Pt reports she lives in in-law suite (basement) in daughter's house, has 6 supportive children. pt described herself as independent in all areas
[employer], has a walker and uses it as needed. Pt expressed her desire to return back home at discharge.
CM spoke to pt's daughter Amaris and she stated she feels that she will not be able to care for pt at home and she is requested pt be placed to a SNF for a short term rehab and possibly a terminal supervisor care.
PT evaluations noted - [facility] level of care recommended. Both pt and her daughter are aware, expressed their agreement. A list of SNFs provided, following SNFs preferred: [facility], [facility] and [facility]. A referral to above SNFs made
this morning. Pt has strait Medicare and secondary insurance [employer]. Both pt and her daughter are aware that pt will not qualify for SNF level of care under Medicare and [employer] will be use as an alternative.
[facility] and [facility] SNF denied a referral due to bed availability. [facility] SNF offered a bed. Both pt and her daughter are aware, expressed their agreement with [facility].
RADHA initiated an auth with [employer] for SNF level of care at [facility], spoke to bilingual patient support caseworker Stefanie who brought her concerns regarding pt's primary insurance Medicare and she stated she will submit a request to [employer] to see how they will
respond.
Requested by [facility] FEP case management program consent form signed by the pt and faxed to [employer] at [phone]
D/C plan: [facility] SNF if approved by [facility]. Awaiting for approval
CM will follow to assist pt with discharge to [facility] SNF.
--- NOTE | 2024-08-18 13:17 | PHANOTE ---
med rec note- patient ramachandran snot know her medication, daughter in room unwilling to help. patient ecw not up to date and has not be reconciled with the patient and md. pharmacy has recent fills
--- NOTE | 2024-08-18 13:51 | HPS.HSE ---
Addendum entered and electronically signed by Alex Bonilla MD 08/18/24 15:10:
MSAS protocol added as patient drinks 2 glasses of wine 3-4 times a day. Last drink last night.
Addendum entered and electronically signed by Alex Bonilla MD 08/18/24 14:48:
SNF level of care recommended for patient.
Original Note:
Family Physician
-
Family Physician: JOVANY Dee
Chief Complaint
-
fall, left shoulder pain
History of Present Illness
89-year-old female past medical history of chronic atrial fibrillation, hypertension, GERD, anxiety, chronic ambulatory dysfunction presenting to the emergency room after a fall. She was getting out of a chair last night and lost her balance and
fell onto her left side. She injured her left shoulder. She is unsure if she hit her head. She did not pass out. EMS brought her to the hospital. He complained of pain in the left shoulder. Pain shoots down the arm and into the wrist. She
denies any numbness. She denies any headache or neck pain. Denies any back pain. Denies any chest pain or abdominal pain. Denies any leg pain.
She has a history of atrial fibrillation but no longer on anticoagulation due to history of falls. She lives with her dog in the basement unit of her daughter's house. She ambulates with a walker but she has not been using it last night.
Medical History
Past Medical History
Past Medical History: Reports Other (chronic atrial fibrillation, hypertension, GERD, anxiety, chronic ambulatory dysfunction )
Past Surgical History: Reports None
Social History
Tobacco: Non-smoker
Alcohol: None
Drug: None
Family History
Family History: Not pertinent
Allergies / Home Medications
Allergies reflects when Allergies were last updated in [facility].
Home Medications with original date entered in [facility]
Allergy/Medication List:
Allergies
Allergy/AdvReac Type Severity Reaction Status Date / Time
No Known Allergies Allergy Verified 11/27/23 12:11
Home Medications
esomeprazole magnesium 40 mg capsule,delayed release (Nexium) 40 mg PO HS Gastrointestinal issue 10/09/12
levothyroxine 75 mcg tablet 75 mcg PO DAILY Thyroid 10/09/12
aspirin 81 mg tablet,delayed release 81 mg PO HS Blood clot prevention/tx 07/12/21
lisinopril 10 mg tablet 10 mg PO QPM Blood pressure 07/12/21
cholecalciferol (vitamin D3) 25 mcg (1,000 unit) tablet 1,000 units PO QPM Supplement 08/30/21
sertraline 25 mg tablet 50 mg PO QPM Mental Health/Anxiety 08/30/21
metoprolol succinate 25 mg tablet,extended release 24 hr 25 mg PO DAILY Blood pressure 11/12/21
acetaminophen 650 mg tablet,extended release 650 mg PO [id number] PRN mild pain 08/25/22
albuterol sulfate 90 mcg/actuation aerosol inhaler 2 puff inhalation Q6H PRN shortness of breath or wheezing #6.7 grams 08/30/22
gabapentin 100 mg capsule 100 mg PO HS 08/18/24
umeclidinium 62.5 mcg-vilanterol 25 mcg/actuation powdr for inhalation (Anoro Ellipta) 1 inh inhalation R DAILY 08/18/24
Review of Systems
-
History Source: Patient
A 12 point ROS was completed and negative except as noted: Yes
Constitutional: Reports No Symptoms
EENT: Reports No Symptoms
Respiratory: Reports No Symptoms
Cardiac: Reports No Symptoms
Abdomen/GI: Reports No Symptoms
: Reports No Symptoms
Musculoskeletal: Reports See HPI
Skin: Reports No Symptoms
Neurological: Reports No Symptoms
Endocrine: Reports No Symptoms
Hematologic/Lymphatic: Reports No Symptoms
Psych: Reports No Symptoms
Physical Exam
Vital Signs
Vital Signs
Temp Pulse Resp BP Pulse Ox
98.5 F 81 21 145/76 96
08/18/24 07:23 08/18/24 12:00 08/18/24 12:00 08/18/24 12:00 08/18/24 10:46
Physical Exam
General: Well Developed, Well Nourished and No Apparent Distress
HEENT: NormoCephalic, Moist mucous membranes and Atraumatic
Respiratory: Clear
Cardiac: S1/S2 and Irregular Rhythm; No Murmur or Rub
GI: Soft, Non Tender, Non Distended and Normal Bowel Sounds; No Organomegaly
Rectal: Deferred by Provider
Musculoskeletal: No Clubbing, No Cyanosis and No Edema
Skin: No Rash
Neuro: Nonfocal/grossly intact
Laboratory Results
-
08/18/24 01:20
08/18/24 01:20
Laboratory Results
Total Bilirubin 0.2 mg/dl (0.2-1.3) 08/18/24 01:20
AST 33 U/L (14-36) 08/18/24 01:20
ALT 20 U/L (0-35) 08/18/24 01:20
Alkaline Phosphatase 61 U/L (38-126) 08/18/24 01:20
Data Reviewed
-
Lab Data: Labs Reviewed by me
Old Records: Reviewed
Impression/Plan
-
IMPRESSION:
PLAN:
# Acute nondisplaced impacted fracture of left humeral neck
-Rest of imaging unremarkable
-Sling placed
-Dilaudid for pain
-Patient seen by PT and case management cannot be placed for rehab at this time
-Tylenol, tramadol, Dilaudid for severe pain
# Mild hypernatremia
-Sodium of 146
-Encourage free water intake
Permanent atrial fibrillation
-Patient in atrial fibrillation
-Not on anticoagulation due to history of falls
-Continue aspirin
-Continue metoprolol
Essential hypertension
-Continue lisinopril
GERD
-Continue omeprazole
Anxiety/depression
-Continue sertraline
Chronic ambulatory dysfunction
-Normally ambulates with walker
Hypothyroidism
-Continue levothyroxine
COPD
-Continue inhalers
Obesity
Chronic neuropathy
-Continue gabapentin
Full code
DVT prophylaxis�SCDs
Regular diet
--- NOTE | 2024-08-18 14:41 | EDRN ---
this RN called the receiving unit and notified them that paper report was going to be tubed up
--- NOTE | 2024-08-18 15:22 | PTCARENOTE ---
Pt arrived to 2S on stretcher. Slid to bed with assistance from NSG staff. Linens found to be wet, removed and new linens applied. Pure wick removed. Pt verbalized ' i know when i have to go', bed ma use reviewed with pt, pt in agreement until able
to safely ambulate to commode/ BR. LUE maintained in sling. Neurovascular assessment intact. Pt c/o LUE pain 05/27, PRN dilaudid provided. Bed alarm applied. Bed locked and in the lowest position, safety maintained. Orientation/ mentation status
waxing and waning. Pt able to answer orientation questions appropriately, but also referring to ' how we are all here in the basement' and making comments about a ' dog with the pot'. Bed locked and in the lowest position, safety maintained.
Oriented to room and call cobian, daughter at bedside.
--- NOTE | 2024-08-18 15:32 | CM ---
Reviewed the chart notes and spoke with the patient and her daughter at the bedside. Per daughter, patient resides in an in-law suite attached to the back of the home. There are no steps to enter. Patient has a rolling walker, shower chair, and
shower rails. [facility] choice [facility]
CM spoke with Lela with [facility]. She is covering for the weekend. Can accept the patient AFTER 5pm tomorrow (Wednesday). Covid screening will be required.
Plan: Discharge to [facility] Wednesday after 5pm.
Call report to: [phone]
Fax report to: [phone]
Medical necessity and transport forms on chart. BARRIENTOS reviewed by previous CM and placed on chart.
[2024-08-18] MEDS: VITAMIN D3 (cholecalciferol) 25 MCG PO (16:59)
[2024-08-18] MEDS: ZOLOFT 50 MG PO (16:59)
[2024-08-18] MEDS: ZESTRIL 10 MG PO (17:05)
--- NOTE | 2024-08-18 18:08 | PTCARENOTE ---
Pt became nauseated while eating dinner and vomited x1 undigested food. No PRN antiemetics ordered, Dr Bonilla notified. Awaiting orders. Care ongoing.
[2024-08-18] MEDS: ZOFRAN 4 MG IV (20:23)
[2024-08-18] MEDS: ULTRAM 50 MG PO (21:01)
[2024-08-18] MEDS: NEURONTIN 100 MG PO (21:02)
[2024-08-18] MEDS: PROTONIX 40 MG PO (21:02)
[2024-08-18] MEDS: ASPIR LOW (ENTERIC COATED) 81 MG PO (21:02)
[2024-08-19] MEDS: ULTRAM 50 MG PO ×2 (06:32→17:15)
[2024-08-19] MEDS: ZOFRAN 4 MG IV (06:32)
[2024-08-19] MEDS: SPIRIVA RESPIMAT 2.5 MCG 2 PUFF INH (07:25)
[2024-08-19] MEDS: STRIVERDI RESPIMAT 2 PUFF INH (07:25)
[2024-08-19 07:29] LABS: % Basophils 0.3 % (0-2); % Eosinophils 4.7 % (0-6); % Immature Granulocytes 0.1 % (0-0.5); % Lymphocytes 25.8 % (20.5-51.1); % Monocytes 12.3 % (1.7-9.3); % Neutrophils 56.8 % (42.2-75.2); Absolute Eosinophils 0.3 10^3/uL (0-0.7); Absolute Lymphocytes 1.7 10^3/uL (1.2-3.4); Absolute Monocytes 0.8 10^3/uL (0.1-0.6); Absolute Neutrophils 3.8 10^3/uL (1.4-6.5); Hematocrit 40.1 % (37.0-47.0); Hemoglobin 14.1 g/dL (12.0-16.0); Mean Corp Hgb Conc. 35.2 g/dL (33.0-37.0); Mean Corpuscular Hgb 32.1 pg (27.0-31.0); Mean Corpuscular Volume 91.3 fL (81.0-99.0); Mean Platelet Volume 9.7 fL (7.4-10.4); Nucleated Red Blood Cells % 0 %; Platelet Count 359 10^3/uL (130-400); Red Blood Cell Count 4.39 10^6/uL (4.20-5.40); Red Cell Dist. Width 13.3 % (11.5-14.5); White Blood Cell Count 6.8 10^3/uL (4.8-10.8)
[2024-08-19] MEDS: VITAMIN B1 100 MG PO (07:56)
[2024-08-19] MEDS: TOPROL XL 25 MG PO (07:57)
[2024-08-19] MEDS: FOLVITE 1 MG PO (07:57)
[2024-08-19] MEDS: SYNTHROID 75 MCG PO (07:57)
[2024-08-19 08:03] LABS: ALT (SGPT) 17 U/L (0-35); AST (SGOT) 32 U/L (14-36); Albumin 3.6 g/dl (3.5-5.0); Alkaline Phosphatase 56 U/L (38-126); Blood Urea Nitrogen 14 mg/dl (7-17); Calcium 9.5 mg/dl (8.4-10.2); Carbon Dioxide 24 mmol/L (22-30); Chloride 108 mmol/L (98-107); Estimated Creatinine Clearance 61 ml/min; Glucose 94 mg/dl (70-99); Potassium 4.7 mmol/L (3.5-5.1); Sodium 141 mmol/L (135-145); Total Bilirubin 0.9 mg/dl (0.2-1.3); Total Protein 6.1 g/dl (6.3-8.2); eGFR > 60.00
[2024-08-19 08:08] VITALS: BP 123/62
--- NOTE | 2024-08-19 08:10 | W.PN.UPDATE ---
Documented by User: Blas Garcia PA-C 08/19/24 08:12
Update Note
Progress Note Update
Full orthopedic consult dictated:
Dx: Impacted/minimally displaced left proximal humerus fracture
Plan: Patient sustained impacted/minimally displaced left proximal humerus fracture. This is in acceptable position so recommend she continue with sling and nonweightbearing left upper extremity. Continue with ice and conservative treatment
modalities for pain. She should follow-up 2 weeks in office for an x-ray to check position. Obviously if any displacement surgical intervention may need to be undertaken.

Documented by User: Bushra Dejesus DO 08/19/24 10:31
Update Note
Progress Note Update
Full orthopedic consult dictated:
Dx: Impacted/minimally displaced left proximal humerus fracture
Plan: Patient sustained impacted/minimally displaced left proximal humerus fracture. This is in acceptable position so recommend she continue with sling and nonweightbearing left upper extremity. Continue with ice and conservative treatment
modalities for pain. She should follow-up 4 weeks in office for an x-ray.
[2024-08-19 10:36] VITALS: BP 100/72; BP 103/51; BP 109/56
--- NOTE | 2024-08-19 10:54 | W.PN.UPDATE ---
Update Note
Progress Note Update
pt seen and examined with daughter at bedside. pt fell at home in her bedroom attempting to use her walker Halloween night. She injured her left shoulder and was admitted for ambulatory dysfunction. Agree with ortho PA's note
LUE: sling intact. tenderness to palpation left proximal humerus. No angular deformities. No errythema/ecchymosis
Xrays left shoulder int/ext/y vews Impacted left proximal humerus fx
Plan: sling left UE. Nonweightbearing LUE. F/U in office in [address] Dejesus
--- NOTE | 2024-08-19 11:53 | W.DS.TRANS ---
DC Summary - Geophysical Support Specialist
-
Discharge Instructions:
Discharge Diagnosis/Procedures Left humeral fracture
Diet Regular
Activity With assistance
Driving Restrictions No driving
Bathing Restrictions None
Instructions:
Stand-Alone Forms:
Changes to Home Medications: No
Discharge Medications:
DC Medications w/original date entered in [facility]
esomeprazole magnesium 40 mg capsule,delayed release (Nexium) 40 mg PO HS Gastrointestinal issue 10/09/12
levothyroxine 75 mcg tablet 75 mcg PO DAILY Thyroid 10/09/12
aspirin 81 mg tablet,delayed release 81 mg PO HS Blood clot prevention/tx 07/12/21
lisinopril 10 mg tablet 10 mg PO QPM Blood pressure 07/12/21
cholecalciferol (vitamin D3) 25 mcg (1,000 unit) tablet 1,000 units PO QPM Supplement 08/30/21
sertraline 25 mg tablet 50 mg PO QPM Mental Health/Anxiety 08/30/21
metoprolol succinate 25 mg tablet,extended release 24 hr 25 mg PO DAILY Blood pressure 11/12/21
albuterol sulfate 90 mcg/actuation aerosol inhaler 2 puff inhalation Q6H PRN shortness of breath or wheezing #6.7 grams 08/30/22
gabapentin 100 mg capsule 100 mg PO HS Pain 08/18/24
umeclidinium 62.5 mcg-vilanterol 25 mcg/actuation powdr for inhalation (Anoro Ellipta) 1 inh inhalation R DAILY Lung/Breathing Issues 08/18/24
acetaminophen 325 mg tablet 650 mg (2 x 325 mg) PO Q4HPRN PRN mild pain/THAYER/temp> 100.4F #0 tabs 08/19/24
folic acid 1 mg tablet 1 mg PO DAILY #0 tabs 08/19/24
thiamine HCl (vitamin B1) 100 mg tablet 100 mg PO DAILY #0 tabs 08/19/24
tramadol 50 mg tablet 50 mg PO Q6HPRN PRN moderate pain #8 tabs 08/19/24
Home Medication Changes
Pending Results: No
--- NOTE | 2024-08-19 11:57 | W.PN.HOSP.TC ---
Today's Communication/Plan
-
Discharge
Assessment / Plan
Assessment / Plan
Gen-AAOx3, NAD
HEENT-NC, AT, anicteric, clear oral mm
Neck-supple
CV-reg, no M, +S1/S2
Lungs-clear B/L
Abd-soft, NT, ND
Ext-no edema
Musculoskeletal-no cyanosis, clubbing, left upper extremity sling
Skin-warm and dry
Neuro-grossly non-focal
Psych-calm, cooperative
Acute traumatic left humeral neck fracture -nondisplaced and impacted on x-ray. Etiology of fracture is trauma from falling as well as underlying osteoporosis. Discussed with patient and daughter.
Continue sling per orthopedics. Follow-up in the office in [address] Dejesus. Nonoperative management.
Continue tramadol as needed for pain. Discontinue Dilaudid, was causing nausea.
Alcohol use disorder -recommend permanent abstinence, discussed with patient and daughter.
Hypernatremia -resolved.
Osteoporosis -recommend outpatient follow-up with PCP, will need treatment. Recommend alcohol abstinence.
Essential hypertension -stable.
COPD without exacerbation -continue home inhalers.
Permanent atrial fibrillation -not on anticoagulation due to history of falls. Continue aspirin, metoprolol.
Chronic ambulatory dysfunction -normally uses a walker.
Hypothyroidism -continue Synthroid.
Chronic peripheral neuropathy -continue gabapentin.
Obesity due to excess calories
Full code
Dispo -for discharge to SNF today. Updated daughter at the bedside.
35 minutes spent in discharge process.
Anticipated Discharge: Today
Subjective/Interval History
-
Date of Service: August 19, 2024
Patient seen and examined. Nausea resolved. Pain under relative control.
Objective Data
-
Labs:
Laboratory Results
08/19/24
06:34
WBC 6.8
Hgb 14.1
Hct 40.1
Plt Count 359
Sodium 141
Potassium 4.7
Chloride 108 H
Carbon Dioxide 24
BUN 14
Creatinine 0.6
Glucose 94
Calcium 9.5
Total Bilirubin 0.9
AST 32
ALT 17
Alkaline Phosphatase 56
Vital Signs:
Vital Signs
Temp Pulse Resp BP Pulse Ox
98.3 F 66 14 123/62 92
08/19/24 08:08 08/19/24 08:08 08/19/24 08:08 08/19/24 08:08 08/19/24 08:08
I&O
08/18/24 08/19/24 08/20/24
06:59 06:59 05:59
Intake Total 980 / 980
Output Total 500 / 500
Balance -500 / -500 980 / 980
Review of Systems
-
History Source: Patient
All other systems: Reviewed and negative
[2024-08-19] MEDS: TYLENOL 650 MG PO (12:25)
--- NOTE | 2024-08-19 15:08 | CM ---
Pt for dc to [facility] today.
[facility] Waiver approved and [facility] placed call to facility with information.
Call report to: [phone]
Fax report to: [phone]
Medical necessity and transport forms on chart.
[2024-08-19 15:59] VITALS: BP 110/65
== END 2024-08-19 18:05 ==
LOC: 2 SOUTH 14:02
PROVIDERS: Student in an Organized Health Care Education/Training Program; ADMITTING PHYSICIAN Hospitalist; ATTENDING PHYSICIAN Hospitalist; CONSULT PHYSICIAN Orthopaedic Surgery; EMERGENCY PHYSICIAN Emergency Medicine; FAMILY PHYSICIAN Nurse Practitioner Adult Health
DX: M80.022A Age-related osteoporosis with current pathological fracture, left humerus, initial encounter for fracture (principal); M25.512 Pain in left shoulder; W01.0XXA Fall on same level from slipping, tripping and stumbling without subsequent striking against object, initial encounter; Y93.89 Activity, other specified; Y92.003 Bedroom of unspecified non-institutional (private) residence as the place of occurrence of the external cause; I48.21 Permanent atrial fibrillation; I10 Essential (primary) hypertension; E03.9 Hypothyroidism, unspecified; K21.9 Gastro-esophageal reflux disease without esophagitis; R26.2 Difficulty in walking, not elsewhere classified; G31.9 Degenerative disease of nervous system, unspecified; F32.A Depression, unspecified; F41.9 Anxiety disorder, unspecified; F10.10 Alcohol abuse, uncomplicated; E66.09 Other obesity due to excess calories; E87.0 Hyperosmolality and hypernatremia; M50.31 Other cervical disc degeneration, high cervical region; J44.9 Chronic obstructive pulmonary disease, unspecified; G62.9 Polyneuropathy, unspecified; Z91.81 History of falling; Z90.49 Acquired absence of other specified parts of digestive tract; Z79.82 Long term (current) use of aspirin; Z79.890 Hormone replacement therapy; Z60.2 Problems related to living alone; Z68.32 Body mass index [BMI] 32.0-32.9, adult
CPT/HCPCS: 29240; 70450; 72125; 73030; 73080; 73110; 80053; 85025; 93005; 94640; 96374; 96376; 97530; 99285; G0378

== ENCOUNTER → 2024-10-17 09:59 | Outpatient (REF) | payer MEDICARE, BC, SELFPAY ==
[2024-10-17 13:17] LABS: % Basophils 0.7 % (0-2); % Eosinophils 3.3 % (0-6); % Immature Granulocytes 0.4 % (0-0.5); % Lymphocytes 33.4 % (20.5-51.1); % Monocytes 8.7 % (1.7-9.3); % Neutrophils 53.5 % (42.2-75.2); Absolute Eosinophils 0.2 10^3/uL (0-0.7); Absolute Lymphocytes 1.8 10^3/uL (1.2-3.4); Absolute Monocytes 0.5 10^3/uL (0.1-0.6); Absolute Neutrophils 2.9 10^3/uL (1.4-6.5); Hematocrit 40.6 % (37.0-47.0); Hemoglobin 13.2 g/dL (12.0-16.0); Mean Corp Hgb Conc. 32.5 g/dL (33.0-37.0); Mean Corpuscular Hgb 30.9 pg (27.0-31.0); Mean Corpuscular Volume 95.1 fL (81.0-99.0); Mean Platelet Volume 9.6 fL (7.4-10.4); Nucleated Red Blood Cells % 0 %; Platelet Count 469 10^3/uL (130-400); Red Blood Cell Count 4.27 10^6/uL (4.20-5.40); Red Cell Dist. Width 14.6 % (11.5-14.5); White Blood Cell Count 5.4 10^3/uL (4.8-10.8)
[2024-10-17 13:44] LABS: ALT (SGPT) 17 U/L (0-35); AST (SGOT) 28 U/L (14-36); Alkaline Phosphatase 70 U/L (38-126); Blood Urea Nitrogen 16 mg/dl (7-17); Calcium 9.8 mg/dl (8.4-10.2); Carbon Dioxide 30 mmol/L (22-30); Chloride 101 mmol/L (98-107); Glucose 89 mg/dl (70-99); Potassium 4.5 mmol/L (3.5-5.1); Sodium 138 mmol/L (135-145); Total Bilirubin 0.5 mg/dl (0.2-1.3); Total Protein 6.5 g/dl (6.3-8.2); eGFR > 60.00
[2024-10-17 14:01] LABS: TSH Reflex To Free T4 1.33 uIU/ml (0.47-4.68)
== END ==
LOC: HWLAB 09:59
PROVIDERS: ATTENDING PHYSICIAN Nurse Practitioner Adult Health
DX: S42.212D Unspecified displaced fracture of surgical neck of left humerus, subsequent encounter for fracture with routine healing (principal); E03.9 Hypothyroidism, unspecified; Z79.899 Other long term (current) drug therapy; Z13.29 Encounter for screening for other suspected endocrine disorder; R54 Age-related physical debility
CPT/HCPCS: 36415; 80053; 84443; 85025

== ENCOUNTER 2024-11-13 16:58 | Emergency (ER) | payer MEDICARE, BC, SELFPAY ==
--- NOTE | 2024-11-13 17:00 | ED.GENMED ---
ED Provider Triage
-
Patient seen by provider in Triage?: Seen in Triage
Attestation: A medical screening examination has been initiated by a qualified medical provider. Based on the assessment performed at this time, it has been determined that an emergent medical condition may exist and the patient has been informed
that further medical evaluation and possible additional diagnostic testing may be needed.
HPI: 89-year-old female presenting to the ER with reported confusion and brain fog. History of UTIs with similar presentations. Patient without any current urinary symptoms but does note she was recently started on a new medication but patient is
unsure as to what. No reported fevers, chills, nausea, vomiting. Patient otherwise hemodynamically stable and in no acute distress, awake alert and oriented x 3 and answering all questions appropriately. Labs and urine ordered.
GENERAL: Alert , in no apparent distress
EYE: No visual abnormalities.
NECK: Trachea midline
ENT: No visible abnormalities.
LUNGS: No acute respiratory distress
NEUROLOGICAL: Alert and oriented
SKIN: Skin intact. No visible changes.
MUSCULOSKELETAL: Moving extremities normally
PSYCH: Normal and appropriate interaction.
This is a medical evaluation conducted in person to initiate diagnostic evaluation and provide initial therapeutics. Please see further documentation by the treating clinician.
History of Present Illness
General
Chief Complaint: Change in Mental Status
History of Present Illness
History of Present Illness:
.
Past History
Past History
ED Past Medical History: Arrthythmia (Atrial fibrillation-only on aspirin), GERD, HTN, Hypothyroidism and Other (Hypertension, A. fib on anticoagulation, cholecystectomy, umbilical hernia repair, GERD)
ED Past Surgical History: Cholecystectomy, Orthopedic (Lateral shoulder, right knee) and Other (Hernia repair)
Patient has exhibited threatening behavior?: No
PSI?: No
Social History
Tobacco: Non-smoker
Alcohol: None
Drug: None
Personal:
Living: with family
Employment: Retired
Family History
Family History: Other (Noncontributory)
Phy Exam
Physical Exam
Physical Exam:
.
Course
Orders/Labs/Results
Orders:
Orders
11/13/24 17:02
Urinalysis Reflex To Culture Urgent
11/13/24 17:14
Basic Metabolic Panel Urgent
Complete Blood Count/With Diff Urgent
Abnormal Lab Results
11/13/24
17:14
Plt Count 421 H 10^3/uL
(130-400)
Absolute Monos (auto) 0.7 H 10^3/uL
(0.1-0.6)
Monocytes % 10.0 H %
(1.7-9.3)
Carbon Dioxide 31 H mmol/L
(22-30)
Glucose 104 H mg/dl
(70-99)
11/13/24 17:14
11/13/24 17:14
Vital Signs
Initial and Last Documented VS:
Initial Vital Signs
Temp Pulse Resp BP Pulse Ox
97.5 F 54 20 167/75 99
11/13/24 17:04 11/13/24 17:04 11/13/24 17:04 11/13/24 17:04 11/13/24 17:04
Last Documented Vital Signs
Temp Pulse Resp BP Pulse Ox
97.5 F 54 20 167/75 99
11/13/24 17:04 11/13/24 17:04 11/13/24 17:04 11/13/24 17:04 11/13/24 17:04
*Critical Care Note
Total Time (30-74mins, 75-104mins- exclusive of procedures): Not Applicable
ED Attending Note
-
Portions of this chart may have been created with voice recognition software.� Occasional wrong word or��sound alike� substitutions may have occurred due to the inherent limitations of voice recognition software.
Discharge Plan
Departure
Patient Disposition: Left Without Treatment
Prescriptions:
No Action
levothyroxine 75 MCG tablet
75 mcg PO DAILY
Patient Comments:
08/18/24- no pharmacy records
esomeprazole magnesium [Nexium] 40 MG capsule,delayed release(DR/EC)
40 mg PO HS
aspirin 81 MG tablet,delayed release (DR/EC)
81 mg PO HS
lisinopril 10 MG tablet
10 mg PO QPM
sertraline 25 MG tablet
50 mg PO QPM
cholecalciferol (vitamin D3) 1,000 UNITS tablet
1,000 units PO QPM
metoprolol succinate 25 MG tablet extended release 24 hr
25 mg PO DAILY
albuterol sulfate 90 mcg/actuation HFA aerosol inhaler
2 puff inhalation Q6H PRN (Reason: shortness of breath or wheezing) Qty: 6.7 0RF
gabapentin 100 mg Capsule
100 mg PO HS
Anoro Ellipta 62.5-25 mcg/actuation Blister With Device
1 inh INHALATION R DAILY
acetaminophen 325 mg Tablet
650 mg PO Q4HPRN PRN (Reason: mild pain/THAYER/temp> 100.4F) Qty: 0 0RF
thiamine HCl (vitamin B1) 100 mg Tablet
100 mg PO DAILY Qty: 0 0RF
tramadol 50 mg Tablet
50 mg PO Q6HPRN PRN (Reason: moderate pain) Qty: 8 0RF
folic acid 1 mg Tablet
1 mg PO DAILY Qty: 0 0RF
Interventions
Interventions:
*Risk Screen - Suicide Last Done: 11/13/24 17:04
*Nursing Disposition Last Done: 11/13/24 21:12
Discharge Date and Time
Print Language: DIVEHI
[2024-11-13 17:04] VITALS: BP 167/75
[2024-11-13 17:25] LABS: % Basophils 0.6 % (0-2); % Eosinophils 2.3 % (0-6); % Immature Granulocytes 0.3 % (0-0.5); % Lymphocytes 29.6 % (20.5-51.1); % Neutrophils 57.2 % (42.2-75.2); Absolute Eosinophils 0.2 10^3/uL (0-0.7); Absolute Lymphocytes 1.9 10^3/uL (1.2-3.4); Absolute Monocytes 0.7 10^3/uL (0.1-0.6); Absolute Neutrophils 3.7 10^3/uL (1.4-6.5); Hematocrit 39.6 % (37.0-47.0); Hemoglobin 13.3 g/dL (12.0-16.0); Mean Corp Hgb Conc. 33.6 g/dL (33.0-37.0); Mean Corpuscular Hgb 30.9 pg (27.0-31.0); Mean Corpuscular Volume 92.1 fL (81.0-99.0); Mean Platelet Volume 9.5 fL (7.4-10.4); Nucleated Red Blood Cells % 0 %; Platelet Count 421 10^3/uL (130-400); Red Cell Dist. Width 13.8 % (11.5-14.5); White Blood Cell Count 6.5 10^3/uL (4.8-10.8)
[2024-11-13 17:43] LABS: Blood Urea Nitrogen 17 mg/dl (7-17); Calcium 9.5 mg/dl (8.4-10.2); Carbon Dioxide 31 mmol/L (22-30); Chloride 101 mmol/L (98-107); Glucose 104 mg/dl (70-99); Potassium 4.2 mmol/L (3.5-5.1); Sodium 138 mmol/L (135-145); eGFR > 60.00
== END 2024-11-13 21:12 | disposition left against medical advice (07) ==
LOC: EMR 16:58
PROVIDERS: EMERGENCY PHYSICIAN Physician Assistant Medical
DX: R41.0 Disorientation, unspecified (principal); E03.9 Hypothyroidism, unspecified; I10 Essential (primary) hypertension; I48.91 Unspecified atrial fibrillation; K21.9 Gastro-esophageal reflux disease without esophagitis; Z79.82 Long term (current) use of aspirin; Z90.49 Acquired absence of other specified parts of digestive tract; Z87.440 Personal history of urinary (tract) infections; Z53.29 Procedure and treatment not carried out because of patient's decision for other reasons
CPT/HCPCS: 99283; 80048; 85025